=== PATIENT | female | born 1950 | race Two or more races ===

== ENCOUNTER 2018-08-01 07:52 | Outpatient (CLI) | payer OTHER | END 2018-08-01 07:55 | disposition home or self-care (01) | LOC: SONOGRAMA 07:52 | DX: E04.1 Nontoxic single thyroid nodule (principal) ==

== ENCOUNTER → 2019-02-08 | Outpatient (CLI) | payer OTHER | END | disposition home or self-care (01) | LOC: SONOGRAMA 10:46 | DX: E04.8 Other specified nontoxic goiter (principal) ==